=== PATIENT | female | born 1935 | race Two or more races ===

== ENCOUNTER 2024-09-10 17:15 | Inpatient (IN) | payer MEDICARE, MEDICAID, SELFPAY ==
[2024-09-10] VITALS (8 sets, daily range): BP systolic 143–157; BP diastolic 57–92; PULSE 84–96; RESP 18–28; TEMP 36.7–39.2; O2SAT 96–100
--- NOTE | 2024-09-10 17:36 | XR_ITS ---
Examination: AP chest single view Technique one AP portable upright chest single view Exam date and time: September 09, 2024 1740 hrs. Comparison September 28, 2017 Indications: Onset chest pain today. Findings: Early CHF Mild enlargement cardiac contour Prominent vascular congestion with early perihilar edema Prominent osteopenia Impression: Early CHF
--- NOTE | 2024-09-10 17:36 | EKG_ITS ---
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
--- NOTE | 2024-09-10 17:41 | EDRME_ITS ---
Rapid Medical Screening Exam RME Arrival date/time: 09/10/24 17:15 Time Seen by Provider: 09/10/24 17:36 Vital signs: Vital Signs Temperature 101.2 F H 09/10/24 17:25 Pulse Rate 95 09/10/24 17:25 Respiratory Rate 18 09/10/24 17:25 Blood Pressure 157/76 H 09/10/24 17:25 Pulse Oximetry (%) 97 09/10/24 17:25 Oxygen Delivery Method Nasal Cannula 09/10/24 17:25 Oxygen Flow Rate 6 09/10/24 17:25 RME Narrative: 88 yo female patient sent over from [facility] for vomiting and wheezing
[2024-09-10 18:14] LABS: Basophils % (Auto) 0 % (0-2.5); Eosinophils % (Auto) 0 % (0-10); Hematocrit 37.1 % (36.0-46.0); Hemoglobin 12.3 g/dL (12.0-16.0); Immature Granulocytes % (Auto) 1 % (0-0); Immature Granulocytes Auto 0.15 Thou/mm3 (0.00-0.00); Lymphocytes # (Auto) 0.3 Thou/mm3 (1.0-4.8); Lymphocytes % (Auto) 2 % (10-50); Mean Corpuscular HGB Conc 33.2 g/dl (31.0-37.0); Mean Corpuscular Hemoglobin 29.6 pg (25.0-35.0); Mean Corpuscular Volume 89 fL (80-100); Monocytes # (Auto) 1.2 Thou/mm3 (0.0-0.8); Monocytes % (Auto) 5 % (0-12); Neutrophils # (Auto) 20.6 Thou/mm3 (1.8-7.7); Neutrophils % (Auto) 92 % (37-80); Nucleated Red Blood Cell % 0 /100 WBC (0); Platelet Count 337 Thou/mm3 (140-440); RDW Standard Deviation 41.6 fL (36.4-46.3); Red Blood Count 4.15 Miln/mm3 (4.00-5.20)
--- NOTE | 2024-09-10 18:15 | EDNOTE_ITS ---
Nausea/Vomit./Diarrhea-RME/HPI General Chief complaint: Nausea/Vomiting/Diarrhea Stated complaint: SOB, WHEEZING Time Seen by Provider: 09/10/24 17:36 Arrival date/time: 09/10/24 17:15 RME / HPI RME / HPI Narrative: 88 yo female patient sent over from [facility] for vomiting and wheezing ------ This section includes all my notes and documentations, including HPI, PE, and ED course. Keith Villagran MD HPI: 88yo female with a history of CAD, HTN, HLD, DM, CVA w/ residual deficits BIBA from [facility] presents to the ED for complaints of wheezing and N/V x today. Per nursing staff here, EMS reported the patient was found by facility staff to be wheezing. Patient is febrile here in the ED. Patient does not answer our questions here in the ED. No other complaints reported. ROS: All negative except as documented in HPI. Physical Exam: General: Awake. In mild respiratory distress. Eyes: Conjunctivae and lids clear. ENT: No nasal congestion. Neck: Supple. Heart: RRR. Lungs: In mild respiratory distress. Decreased air movement. Diffuse rales. Abdomen: Soft and nontender. Legs: No clubbing, cyanosis, edema. Skin: Warm and dry. Neuro: Awake. I reviewed all diagnostic test results. My interpretation of the EKG is sinus rhythm with no acute ST?T changes. My interpretation of the chest x-ray is increased vascular congestion. Blood tests and urine tests remarkable for WBC 22.3, lactic acid 3.0, Mg 1.1, and UTI. At this point, diagnoses include sepsis and UTI and respiratory failure and hypomagnesemia. Treatment here included IV fluid and Solu-Medrol and DuoNeb and Rocephin and Toradol and Tylenol. No significant improvement noted. I discussed the case with our hospitalist. About the presentation and exam and diagnostics and treatments here. And need of further care in the hospital. Will accept the patient. Keith Villagran MD Related Data Home Medications ?Medication ?Instructions ?Recorded ?Confirmed docusate sodium 100 mg capsule 100 mg PO BID 10/26/17 10/27/17 (Doc-Q-Lace) nebivolol 5 mg tablet (Bystolic) 5 mg PO QDAY 10/26/17 10/27/17 nitroglycerin 0.4 mg sublingual 0.4 mg buccal PRN PRN Chest Pain 10/26/17 10/27/17 tablet (Nitrostat) pravastatin 20 mg tablet 20 mg PO HS 10/26/17 8 hbwnhpvxdezp-aorzuhvucocjl-sfxbqyv 5 ml PO PRN PRN Cou gh 10/26/17 10/27/17 6.25 mg-5 mg-10 mg/5 mL oral syrup (Promethazine VC-Codeine) Allergies Allergy/AdvReac Type Severity Reaction Status Date / Time Penicillins Allergy Unknown Verified 10/27/17 07:23 Review of Systems Review of Systems Systems Reviewed: All systems reviewed, normal except as documented Past Medical History Past Medical History NEUROLOGIC: Negative Neurological Disorders CARDIAC: Positive Cardiac Disorders, Myocardial Infarction (pt states she thinks so but unsure), Angina, Coronary Artery Disease, Hypercholesterolemia and Hypertension; Negative Congestive Heart Failure RESPIRATORY: Positive Pneumonia (as a child); Negative Chronic Obstructive Pulmonary Disease (COPD) GASTROINTESTINAL: Positive Gall Bladder Disease GENITOURINARY: Positive Genitourinary Disorders and Kidney Stones; Negative Renal Disease REPRODUCTIVE: Positive Breast Cancer (right 1985); Negative Previous Pregnancies MUSCULOSKELETAL: Positive Musculoskeletal Disorders and Arthritis ENDOCRINE: Positive Diabetes Mellitus Type 2 (since 2017); Negative Diabetes Mellitus Type 1 HEMATOLOGIC: Negative Blood Disorders OTHER HISTORY: Positive Chemotherapy, Chicken Pox, Measles, Mumps and Breast Cancer (right 1985); Negative Autoimmune Disease Family History FAMILY HISTORY: Positive Family Respiratory Disorders (sister home o2), Family Cardiac Disorders (sister pacemaker, brother ruptured aneurysm), Family Gastrointestinal Problems (sister stomach ca) and Family Cancer (sister stomach ca); Negative Family Psychiatric Problems, Family Surgery or Family Anesthesia Reaction Surgical History SURGICAL: Positive Coronary Stent (x1 unknown details), Cardiac Catheterization, Angiogram, Eye Surgery (bilat unknown details), Nose Surgery (nose to forehead surgery pt states air would escape nose into heah) and Mastectomy (right complete 1985) Social History SMOKING STATUS: Never smoker ED Exam Narrative Physical exam: As noted in HPI. Course Course Course Narrative: CXR is ordered for determining the etiology of fever. 1810: Sepsis alert initiated. Orders made at this time are congruent with ED Adult Sepsis Order List. Re-evaluation is to be completed. 1924: NS IVF started. Quality Measures none Orders Category Date Time Status Bedside COVID-19 Antigen Test NOW Care 09/10/24 17:36 Active Bedside Influenza A&B Antigen Test NOW Care 09/10/24 17:36 Completed COVID-19 Screening Questionnaire NOW Care 09/10/24 21:00 Active Web Administrator NOW Care 09/10/24 17:36 Active Decision to Admit X1 Care 09/10/24 21:00 Active EKG (ED ONLY) *Do not use* NOW Care 09/10/24 17:36 Completed Saline [Insert IV] NOW Care 09/10/24 18:23 Active Straight [In and Out Catheter] X1 Care 09/10/24 18:23 Active EKG (ED Only) Stat Exams 09/10/24 17:36 Draft XR chest 1V portable Stat Exams 09/10/24 17:36 Completed B-Type Natriuretic Peptide Stat Lab 09/10/24 17:48 Completed Blood Culture (Lab) Stat Lab 09/10/24 17:48 Received CBC Stat Lab 09/10/24 17:48 Completed Comprehensive Metabolic Panel Stat Lab 09/10/24 17:48 Completed Lactate (Lactic Acid) Stat Lab 09/10/24 17:48 Results Lipase Stat Lab 09/10/24 17:48 Completed Magnesium Stat Lab 09/10/24 17:48 Completed Partial Thromboplastin Time Stat Lab 09/10/24 17:48 Completed Procalcitonin Stat Lab 09/10/24 17:48 Completed Prothrombin Time with INR Stat Lab 09/10/24 17:48 Completed RSV [Respiratory Syncytial Virus Ag] Stat Lab 09/10/24 18:25 Ordered Troponin I Stat Lab 09/10/24 17:48 Completed Urinalysis Stat Lab 09/10/24 20:23 Completed Urine Culture Stat Lab 09/10/24 20:23 Received Acetaminophen Ivpb [Ofirmev Inj] Med 09/10/24 18:23 Discontinued 1,000 mg in 100 ml IV NOW Albuterol/Ipratr Rt Candida [Duoneb Rt Candida] Med 09/10/24 18:23 Discontinued 3 ml INH X1 ONE Ketorolac Inj [Toradol Inj] Med 09/10/24 18:23 Discontinued 7.5 mg IVP X1 ONE Magnesium Sulfate 2 GM Ivpb [Magnesium Sulfate Ivpb] Med 09/10/24 19:40 Active 2 gm in 50 ml IV X1 Magnesium Sulfate 2 GM Ivpb [Magnesium Sulfate Ivpb] Med 09/10/24 19:40 Active 2 gm in 50 ml IV X1 MethylPREDNISolone.* [SoluMEDROL Inj] Med 09/10/24 18:23 Discontinued 125 mg IVP X1 ONE Sodium Chloride 0.9% 1000 ml [Ns] 1,000 ml Med 09/10/24 18:23 Discontinued IV 999 mls/hr cefTRIAXone [Rocephin] 1,000 mg Med 09/10/24 18:23 Discontinued Sodium Chloride 0.9% (P) [Ns 0.9% (P)] 50 ml IV X1 Vital Signs Vital signs: Vital Signs Temperature 101.2 F H 09/10/24 17:25 Pulse Rate 95 09/10/24 17:25 Respiratory Rate 18 09/10/24 17:25 Blood Pressure 157/76 H 09/10/24 17:25 Pulse Oximetry (%) 97 09/10/24 17:25 Oxygen Delivery Method Nasal Cannula 09/10/24 17: Oxygen Flow Rate 6 09/10/24 17:25 Nausea/Vomiting/Diarrhea MDM Narrative MDM Narrative:: Scribe Attestation: 09/10/24 Silvana Starr am scribing for and in the presence of Dr. Villagran. Patient data External records reviewed:: [facility] previous records (Per chart review, patient has no previous ED visits or admissions to this facility.) Clinical information provided by:: EMS Social determinants that could affect healthcare access:: housing (SNF resident) Patient has the following chronic illnesses:: CAD, HTN, HLD, DM, CVA w/ residual deficits How is presenting disease/condition affected by chronic disease/condition?: exacerbated by Evaluation data The following diagnostics were reviewed and interpreted by me:: lab results, radiology exam(s) and EKG tracing(s) (My interpretation of the EKG is: Sinus rhythm (87 bpm) with PACs and nonspecific ST-T changes. Keith iVllagran MD) Lab and/or radiology exams considered but not ordered:: none Interpretation Summary: Sepsis and UTI and respiratory failure and hypomagnesemia Medications / Prescriptions Medications / Prescriptions considered but not ordered:: none Medication administrations:: Medication Administration History Magnesium Sulfate (Magnesium Sulfate Ivpb) 2 gm in 50 mls @ 25 mls/hr IV X1 ONE Stop: 09/10/24 21:39 Last Admin: 09/10/24 20:00 Dose: 25 mls/hr Documented By: ISABELA Magnesium Sulfate (Magnesium Sulfate Ivpb) 2 gm in 50 mls @ 25 mls/hr IV X1 ONE Stop: 09/10/24 21:39 Last Admin: 09/10/24 20:01 Dose: 25 mls/hr Documented By: ISABELA Discontinued Medications Albuterol/Ipratropium (Albuterol/Ipratropium (Duoneb) Rt Candida 3 Ml Nebu) 3 ml INH X1 ONE Stop: 09/10/24 18:24 Last Admin: 09/10/24 19:43 Dose: 3 ml Documented By: DEBBY Acetaminophen (Ofirmev Inj) 1,000 mg in 100 mls @ 250 mls/hr IV NOW ONE Stop: 09/10/24 18:46 Last Admin: 09/10/24 19:29 Dose: 250 mls/hr Documented By: ISABELA Ceftriaxone Sodium 1,000 mg/ (Sodium Chloride) 50 mls @ 100 mls/hr IV X1 ONE Stop: 09/10/24 18:52 Last Admin: 09/10/24 19:31 Dose: 100 mls/hr Documented By: ISABELA Sodium Chloride (Ns) 1,000 mls @ 999 mls/hr IV .Q1H1M ONE Stop: 09/10/24 19:23 Last Admin: 09/10/24 19:25 Dose: 999 mls/hr Documented By: ISABELA Ketorolac Tromethamine (Ketorolac Inj 30 Mg/Ml Vial) 7.5 mg IVP X1 ONE Stop: 09/10/24 18:24 Last Admin: 09/10/24 19:27 Dose: 7.5 mg Documented By: ISABELA Methylprednisolone Sodium Succinate (Methylprednisolone Sod Succ 62.5 Mg/Ml 2ml Vial) 125 mg IVP X1 ONE Stop: 09/10/24 18:24 Last Admin: 09/10/24 19:26 Dose: 125 mg Documented By: ISABELA Solumedrol, Toradol, NS, Rocephin, Tylenol, Duobeb, Magnesium Sulfate Consultations Consultation(s) initiated? (list below): No Diagnosis Nausea Differential Diagnosis: dehydration and other (Pneumonia, LA, sepsis, electrolyte abnormalities) Most likely diagnosis given after review of the tests above:: Sepsis and UTI and respiratory failure and hypomagnesemia Admission Indicated Admission indicated?: indicated Explain why admission is indicated or not indicated:: Sepsis and UTI and respiratory failure and hypomagnesemia Admission Request Was there a request for admission?: Yes Admission Attestation Admission request attestation: Discussed case with Hospitalist service regarding admission. Discussed patients ED course, exam findings, labs, and radiology results. The Hospitalist [agrees] to accept the patient for admission. Disposition Plan Disposition Plan: Admit Discharge Plan Plan Patient Disposition: Admit Acute Care w/in Hospital Prescriptions/Referrals Prescriptions/Med Rec: No Action [id number] [Promethazine VC-Codeine] 6.25-5-10 mg/5 mL Syrup 5 ml PO PRN PRN (Reason: Cough) nitroglycerin [Nitrostat] 0.4 mg Tablet, Sublingual 0.4 mg buccal PRN PRN (Reason: Chest Pain) docusate sodium [Doc-Q-Lace] 100 mg Capsule 100 mg PO BID pravastatin 20 mg Tablet 20 mg PO HS nebivolol [Bystolic] 5 mg Tablet 5 mg PO QDAY Referrals: Minesh Correia MD [Primary Care Provider] - In 1 week Problem List Clinical Impression: Sepsis, UTI (urinary tract infection), Respiratory failure with hypoxia, Hypomagnesemia Patient/Caregiver Discharge Instructions Print Language: Yemeni Stand Alone Forms: [facility] Award Info., Patient Portal Info Letter
--- NOTE | 2024-09-10 18:15 | PD.EDSOB ---
ED SOB =RME/HPI General Chief Complaint: Nausea/Vomiting/Diarrhea Stated Complaint: SOB, WHEEZING Time Seen by Provider: 09/10/24 17:36 Arrival date/time: 09/10/24 17:15 RME / HPI RME / HPI Narrative: 88 yo female patient sent over from [facility] for vomiting and wheezing Related Data Home Medications ?Medication ?Instructions ?Recorded ?Confirmed docusate sodium 100 mg capsule 100 mg PO BID 10/26/17 10/27/17 (Doc-Q-Lace) nebivolol 5 mg tablet (Bystolic) 5 mg PO QDAY 10/26/17 10/27/17 nitroglycerin 0.4 mg sublingual 0.4 mg buccal PRN PRN Chest Pain 10/26/17 10/27/17 tablet (Nitrostat) pravastatin 20 mg tablet 20 mg PO HS 10/26/17 10/27/17 ibphafebtfzu-coryskmwyqyno-gleudgn 5 ml PO PRN PRN Cough 10/26/17 10/27/17 6.25 mg-5 mg-10 mg/5 mL oral syrup (Promethazine VC-Codeine) Allergies Allergy/AdvReac Type Severity Reaction Status Date / Time Penicillins Allergy Unknown Verified 10/27/17 07:23 Course Orders Category Date Time Status Bedside COVID-19 Antigen Test NOW Care 09/10/24 17:36 Active Bedside Influenza A&B Antigen Test NOW Care 09/10/24 17:36 Active Solid Waste Disposal Manager NOW Care 09/10/24 17:36 Active EKG (ED ONLY) *Do not use* NOW Care 09/10/24 17:36 Active EKG (ED Only) Stat Exams 09/10/24 17:36 Ordered XR chest 1V portable Stat Exams 09/10/24 17:36 Taken B-Type Natriuretic Peptide Stat Lab 09/10/24 17:48 Received Blood Culture (Lab) Stat Lab 09/10/24 17:48 Received CBC Stat Lab 09/10/24 17:48 Received Comprehensive Metabolic Panel Stat Lab 09/10/24 17:48 Received Lactate (Lactic Acid) Stat Lab 09/10/24 17:48 Results Lipase Stat Lab 09/10/24 17:48 Received Magnesium Stat Lab 09/10/24 17:48 Received Partial Thromboplastin Time Stat Lab 09/10/24 17:48 Received Procalcitonin Stat Lab 09/10/24 17:48 Received Prothrombin Time with INR Stat Lab 09/10/24 17:48 Received Troponin I Stat Lab 09/10/24 17:48 Received Urinalysis Stat Lab 09/10/24 17:36 Ordered Urine Culture Stat Lab 09/10/24 17:36 Ordered Vital Signs Vital signs: Vital Signs Temperature 101.2 F H 09/10/24 17:25 Pulse Rate 95 09/10/24 17:25 Respiratory Rate 18 09/10/24 17:25 Blood Pressure 157/76 H 09/10/24 17:25 Pulse Oximetry (%) 97 09/10/24 17:25 Oxygen Delivery Method Nasal Cannula 09/10/24 17:25 Oxygen Flow Rate 6 09/10/24 17:25 Discharge Plan Prescriptions/Referrals Prescriptions/Med Rec: No Action [id number] [Promethazine VC-Codeine] 6.25-5-10 mg/5 mL Syrup 5 ml PO PRN PRN (Reason: Cough) nitroglycerin [Nitrostat] 0.4 mg Tablet, Sublingual 0.4 mg buccal PRN PRN (Reason: Chest Pain) docusate sodium [Doc-Q-Lace] 100 mg Capsule 100 mg PO BID pravastatin 20 mg Tablet 20 mg PO HS nebivolol [Bystolic] 5 mg Tablet 5 mg PO QDAY Referrals: Minesh Correia MD [Primary Care Provider] - In 1 week Patient/Caregiver Discharge Instructions Print Language: Argentine
[2024-09-10 18:21] LABS: White Blood Count 22.3 Thou/mm3 (3.6-11.0)
[2024-09-10 18:30] LABS: INR 1.1 (0.9-1.3); Partial Thromboplastin Time 25.2 Seconds (22.0-36.0); Prothrombin Time 11.9 Seconds (9.0-12.2)
[2024-09-10 18:33] LABS: B-Type Natriuretic Peptide 176 pg/mL (0-100)
[2024-09-10 18:41] LABS: Alanine Aminotransferase 44 U/L (10-49); Albumin, Serum 3.9 gm/dL (3.4-4.8); Albumin/Globulin Ratio 1.3 (1.2-2.2); Alkaline Phosphatase 57 U/L (46-116); Anion Gap 8 (7-16); Aspartate Amino Transferase 61 U/L (0-34); BUN/Creatinine Ratio 16 Ratio (12-20); Bilirubin,Total 0.5 mg/dL (0.3-1.2); Blood Urea Nitrogen 14 mg/dL (9-23); Calcium 9.6 mg/dL (8.3-10.6); Calcium (Corrected) 9.7 mg/dL (8.5-10.1); Carbon Dioxide 23.7 mMol/L (20.0-31.0); Chloride 108 mMol/L (98-107); Creatinine (Component) 0.9 mg/dL (0.6-1.3); Globulin 3.1 gm/dL (2.3-3.5); Glucose 197 mg/dL (74-106); Lipase 26 U/L (12-53); Magnesium 1.1 mg/dL (1.6-2.6); Osmolality,Calculated 284 (275-295); Potassium 3.8 mMol/L (3.4-5.1); Procalcitonin 0.53 ng/ml (0.0-0.49); Sodium 140 mMol/L (136-145); Troponin I < 0.020 ng/mL (0.0-0.045); eGFR > 60 See Note
[2024-09-10] MEDS: SODIUM CHLORIDE 0.9% 1000 ML 1,000 ML 999 ML IV (19:25)
[2024-09-10] MEDS: MethylPREDNISolone SOD SUCC 62.5 MG/ML 2ML VIAL 125 MG IVP (19:26)
[2024-09-10] MEDS: KETOROLAC INJ 30 MG/ML VIAL 7.5 MG IVP (19:27)
[2024-09-10] MEDS: ACETAMINOPHEN IVPB 1,000 MG/100 ML VIAL 250 MG IV (19:29)
[2024-09-10] MEDS: cefTRIAXone 1,000 MG in SODIUM CHLORIDE 0.9% (P) 50 ML 100 MG IV (19:31)
[2024-09-10] MEDS: ALBUTEROL/IPRATROPIUM (Duoneb) RT SOL 3 ML NEBU INH ×2 (19:43→22:20)
[2024-09-10] MEDS: Magnesium Sulfate 2 GM Ivpb 2 GM/50 ML BAG IV ×2 (20:00→20:01)
[2024-09-10 20:36] LABS: Collection Type, Urine Clean Catch
[2024-09-10 20:49] LABS: Bacteria,Urine 3+; Bilirubin,Urine Negative (Negative); Blood,Urine Trace (Negative); Clarity,Urine Turbid (Clear/Hazy); Color,Urine Yellow (Lt Yel-Yel); Glucose, Urine Negative (Negative); Hyaline Casts,Urine < 1 /hpf (0-1); Ketones,Urine Negative (Negative); Leukocyte Esterase,Urine Positive (Negative); Nitrite,Urine Negative (Negative); PH,Urine 5.5 (5.0-7.0); Protein,Urine Trace (Neg - Trace); RBC,Urine 1 /hpf (0-3); Specific Gravity,Urine 1.016 (1.001-1.035); Squamous Epithelial Cell,Urine 2 /hpf (0-5); Urobilinogen,Urine Negative mg/dL (0.0-1.0); WBC,Urine 4 /hpf (0-5)
[2024-09-10 21:05] LABS: Reflex Lactate? Y
[2024-09-10 21:23] LABS: Lactic Acid, 3 HR 1.7 mMol/L (0.4-2.0)
--- NOTE | 2024-09-10 21:48 | PD.RESHP ---
Documentation for date of: 09/10/24 [facility] History of Present Illness History of present illness: This is an 88-year-old female with PMHx of dementia, CVA, DVT on ELIQUIS, asthma, HTN, HLD, hypothyroidism, T2DM, oropharyngeal dysphagia. [facility] with a chief complaint of 1 day of wheezing and nausea/vomiting. History is limited secondary to dementia. Per SNF, she has baseline dementia, chronically bedridden. She has been getting her asthma medications as prescribed however today she was found to have increased wheezing as well as nausea and vomiting stomach content. She does not use oxygen. No reported worsening dementia, new onset altered mental status, fever, chills, night sweats, chest pain, shortness of breath, abdominal pain, N/V/D/C, dysuria or urinary frequency or urgency. ED COURSE: T101.2, HR 95, RR 21, BP 157/76, satting 97% on 2L NC. WBC 22.3, CBC otherwise WNL. Normal coag studies. Chemistry significant for lactic acid 3.0 > 1.7, magnesium 1.1, AST 61, BNP 176, PRO-LEIGHTON 0.53, GLUCOSE 197. UA turbid with 3+ bacteria and positive leukocyte esterase. EKG sinus rhythm without acute ST changes. CXR showed CHF pattern, no pneumonia. Negative COVID, influenza A, influenza B. PMHx: Dementia, CVA, metabolic encephalopathy, DVT, asthma, HTN, HLD, hypothyroidism, T2DM, oropharyngeal dysphagia PSHx: Unable to obtain. MEDS: Multiple meds, most importantly: DONEPEZIL 5 mg HS, ASPIRIN 81 mg, ATORVASTATIN 40 mg, FENOFIBRATE 48 mg daily, NEBIVOLOL 10 mg daily, LISINOPRIL 10 mg, ELIQUIS 5 mg BID, LEVOTHYROXINE 50 mcg, INSULIN GLARGINE 15 units, NOVOLOG, JANUVIA 50 mg daily, METFORMIN 1000 mg BID, NITROGLYCERIN 0.4 mg PRN, NORCO 7.5-325 milligram Q8H for pain, , BACLOFEN 5 mg daily for back pain, LATANOPROST eyedrops bilaterally daily, PROMETHAZINE for cough, GUAIFENESIN, DuoNebs q.4h. ALLERGIES: PENICILLIN FHx: Unable to obtain. SH: Unable to obtain. Exam Vital Signs Temp Pulse Resp BP Pulse Ox O2 Del Method O2 Flow Rate 98.1 F 96 21 H 156/92 H 97 Room Air 2 09/10/24 20:29 09/10/24 20:29 09/10/24 20:29 09/10/24 20:29 09/10/24 20:29 09/10/24 20:29 09/10/24 19:44 Narrative Exam GENERAL Elderly female, no apparent distress. HEENT NCAT.?[place]. Oral mucosa is moist. Patent Nares NECK Supple, nontender, no thyromegaly, no meningismus, no JVD, no step offs CHEST RRR, no m/g/r Coarse breath sounds bilaterally, mild wheezing throughout. Symmetrical chest rise. No intercostal subcostal retraction Atraumatic, nontender, no crepitus, symmetrical expansion. ABDOMEN Soft, flat, nontender. No guarding/rebound tenderness/masses. Bowel sounds presents EXTREMITIES Nontender, no cyanosis, no edema No edema/cyanosis.? SKIN Warm and dry, no jaundice/rashes. NEUROMUSCULAR No lumbar or midline, no CVA, no paraspinal muscle spasm or tenderness. Moves all 4 extremities well, with full ROM and good CSM. No focal neurologic deficits. PSYCHIATRY Normal mood and affect, cooperative, no SI or HI or hallucinations. Results: Labs 09/10/24 17:48 09/10/24 17:48 Labs: Short CBC 09/10/24 Range/Units 17:48 WBC 22.3 H (3.6-11.0) Thou/mm3 Hgb 12.3 (12.0-16.0) g/dL Hct 37.1 (36.0-46.0) % Plt Count 337 (140-440) Thou/mm3 BMP 09/10/24 17:48 Sodium 140 Potassium 3.8 Chloride 108 H Carbon Dioxide 23.7 BUN 14 Creatinine 0.9 Glucose 197 H Calcium 9.6 Cardiac Enzymes 09/10/24 Range/Units 17:48 Troponin I < 0.020 (0.0-0.045) ng/mL Liver Function 09/10/24 Range/Units 17:48 Total Bilirubin 0.5 (0.3-1.2) mg/dL AST 61 H (0-34) U/L ALT 44 (10-49) U/L Alkaline Phosphatase 57 (46-116) U/L Albumin 3.9 (3.4-4.8) gm/dL Urine 09/10/24 Range/Units 20:23 Urine Color Yellow (Lt Yel-Yel) Urine Clarity Turbid A (Clear/Hazy) Urine pH 5.5 (5.0-7.0) Ur Specific [place] 1.016 (1.001-1.035) Urine Protein Trace (Neg - Trace) Urine Glucose (UA) Negative (Negative) Quality Measures Quality Measures none Advance care planning discussed with:: patient Medications Home Medications and Allergies Home Medications ?Medication ?Instructions ?Recorded ?Confirmed ?Type docusate sodium 100 mg capsule 100 mg PO BID 10/26/17 10/27/17 History (Doc-Q-Lace) nebivolol 5 mg tablet (Bystolic) 5 mg PO QDAY 10/26/17 10/27/17 History nitroglycerin 0.4 mg sublingual 0.4 mg buccal PRN PRN Chest Pain 10/26/17 10/27/17 History tablet (Nitrostat) pravastatin 20 mg tablet 20 mg PO HS 10/26/17 10/27/17 History knbrelkdjohi-bogexzpsfvgfr-mqbzqav 5 ml PO PRN PRN Cough 10/26/17 10/27/17 History 6.25 mg-5 mg-10 mg/5 mL oral syrup (Promethazine VC-Codeine) Allergies Allergy/AdvReac Type Severity Reaction Status Date / Time Penicillins Allergy Unknown Verified 10/27/17 07:23 Visit Medications Acetaminophen (Acetaminophen 325 Mg Tablet) 650 mg PO Q6H PRN PRN Reason: PAIN SCALE 1-3 (mild Stop: 10/10/24 21:28 Acetaminophen (Acetaminophen 325 Mg Tablet) 650 mg PO Q6H PRN PRN Reason: Fever >100 Stop: 10/10/24 21:28 Albuterol/Ipratropium (Albuterol/Ipratropium (Duoneb) Rt Candida 3 Ml Nebu) 3 ml INH Q6HRRT [facility] Stop: 10/11/24 00:59 Ceftriaxone Sodium/Dextrose (Rocephin/D5w 1gm Iv Premix) 50 mls @ 100 mls/hr IV DAILY@2100 [facility] Stop: 09/18/24 20:59 Doxycycline Hyclate 100 mg/ (Sodium Chloride) 100 mls @ 100 mls/hr IV BID [facility] Stop: 09/17/24 21:34 Ondansetron HCl (Ondansetron Inj 2 Mg/Ml Inj 2 Ml) 4 mg IV Q6H PRN; Protocol PRN Reason: NAUSEA OR VOMITING Stop: 10/10/24 21:28 Pantoprazole Sodium (Pantoprazole Inj 40 Mg Vial) 40 mg IVP QDAY ROXANA Stop: 10/11/24 08:59 Discontinued Medications Albuterol/Ipratropium (Albuterol/Ipratropium (Duoneb) Rt Candida 3 Ml Nebu) 3 ml INH X1 ONE Stop: 09/10/24 18:24 Last Admin: 09/10/24 19:43 Dose: 3 ml Acetaminophen (Ofirmev Inj) 1,000 mg in 100 mls @ 250 mls/hr IV NOW ONE Stop: 09/10/24 18:46 Last Infusion: 09/10/24 20:25 Dose: Infused Ceftriaxone Sodium 1,000 mg/ (Sodium Chloride) 50 mls @ 100 mls/hr IV X1 ONE Stop: 09/10/24 18:52 Last Infusion: 09/10/24 21:27 Dose: Infused Sodium Chloride (Ns) 1,000 mls @ 999 mls/hr IV .Q1H1M ONE Stop: 09/10/24 19:23 Last Infusion: 09/10/24 21:27 Dose: Infused Magnesium Sulfate (Magnesium Sulfate Ivpb) 2 gm in 50 mls @ 25 mls/hr IV X1 ONE Stop: 09/10/24 21:39 Last Admin: 09/10/24 20:00 Dose: 25 mls/hr Magnesium Sulfate (Magnesium Sulfate Ivpb) 2 gm in 50 mls @ 25 mls/hr IV X1 ONE Stop: 09/10/24 21:39 Last Admin: 09/10/24 20:01 Dose: 25 mls/hr Ketorolac Tromethamine (Ketorolac Inj 30 Mg/Ml Vial) 7.5 mg IVP X1 ONE Stop: 09/10/24 18:24 Last Admin: 09/10/24 19:27 Dose: 7.5 mg Methylprednisolone Sodium Succinate (Methylprednisolone Sod Succ 62.5 Mg/Ml 2ml Vial) 125 mg IVP X1 ONE Stop: 09/10/24 18:24 Last Admin: 09/10/24 19:26 Dose: 125 mg Sodium Chloride (Sodium Chloride Rt 10% 15 Ml Nebu) 5 ml INH X1 ONE Stop: 09/10/24 21:34 Assessment & Plan Plan In summary: 88-year-old female with PMHx of dementia, CVA, DVT on ELIQUIS, asthma, HTN, HLD, hypothyroidism, T2DM, oropharyngeal dysphagia. Admitted for sepsis likely from PNA vs. UTI. AHRF Sepsis 2/2 PNA vs UTI Asthma with ?exacerbation Presenting from SNF with wheezing. Met 4/4 SIRS with fever, tachycardia, tachypnea, leukocytosis, with EOD i.e. lactic acidosis. UA positive for 3+ bacteria and LE. Unable to assess for symptoms given dementia, CXR no PNA. However has cough, coarse breath sounds and wheezing on exam, hx of dysphagia, concerning for early aspiration PNA. Negative COVID, influenza A/B. Given 1 L NS bolus in ED. ? Continue FLAGYL and DOXYCYCLINE for PNA (09/10 to present) *PEN allergy ? Continue CEFTRIAXONE (09/10 to present) ? Continue DuoNebs q.4h. ? Continue GUAIFENESIN 100 mg QID PRN for cough. ? Pending pancultures, MRSA, RSV ? De-escalate ANTIBIOTICS as indicated ? Will give another 500 cc gently. Electrolyte abnormalities 09/10, magnesium 1.1, repleted. ? Replete as needed Elevated BNP Mild transaminitis BNP 176, CXR suggested CHF, no history of CHF, no signs of volume overload, no recent echo. AST 61, likely in setting of dehydration. ? Gentle fluids DVT on Eliquis History of DVT 6 months ago. Location unclear, no obvious exam findings of DVT. Per SNF, primary doctor wanted to continue ELIQUIS. ? Continue home ELIQUIS 5 mg BID. HTN, HLD hypothyroidism BP 156/92, HR 96. Will hold BETA-BLOCKERS for risk of masking tachycardia in setting of sepsis. ? Resume home NEBIVOLOL 10 mg HS when able to ? Continue home LISINOPRIL 10 mg ? Continue home ATORVASTATIN 40 mg ? Continue home FENOFIBRATE 48 mg daily ? Continue home LEVOTHYROXINE 50 mcg T2DM GLUCOSE 197 on admission. ? INSULIN sliding scale ? Accu-Cheks ? Consider A1c Hx of CVA ? Continue home ASPIRIN 81 mg daily [place] Oropharyngeal dysphagia Appears at baseline. Will need dysphagia diet after formal speech evaluation. ? Bedside swallow eval Glaucoma ? Continue home LATANOPROST eyedrops bilaterally daily ? Continue home BRIMONIDINE 0.1% solution bilaterally TID Chronic musculoskeletal pain ? Continue BACLOFEN 5 mg daily PRN ? Continue NORCO 7.5-325 milligram Q8H for pain Chest pain, nonspecific Likely chronic anginal chest pain. Currently asymptomatic. Troponin normal. EKG sinus without acute ST changes. ? Continue home NITROGLYCERIN 0.4 mg PRN Health maintenance Diet: NPO, will need dysphagia diet [id number] GI prophylaxis: PROTONIX DVT prophylaxis: ELIQUIS Antibiotics: ZOSYN, DOXYCYCLINE CODE STATUS: Full code Disposition: Admitted for sepsis. Patient case was discussed with attending, Blair Cordero MD. 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 Patient also has wheezing. She has known asthma. The patient was given bronchodilators. She was started on IV antibiotic treatment empirically. MRSA screen requested. Her prolactin level is elevated. She has a white count of 22,000. Chest x-ray revealed no dense infiltrate. She has increased bronchovascular markings possible CHF. She was given IV Zosyn and doxycycline. Follow culture results. Monitor respiratory status. ABG BiPAP as indicated.
[2024-09-10] MEDS: SODIUM CHLORIDE RT 10% 15 ML NEBU 5 ML INH (22:20)
--- NOTE | 2024-09-10 23:16 | PC.RT ---
Sputum Induction completed. Sputum culture collected and sent to lab for analysis.
[2024-09-10] MEDS: SODIUM CHLORIDE 0.9% 500 ML 500 ML 125 ML IV (23:33)
[2024-09-10] MEDS: APIXABAN 2.5 MG TABLET 5 MG PO (23:38)
[2024-09-10] MEDS: BRIMONIDINE OP SOL 0.1% 5 ML BTL 1 DROP BOTH EYES (23:38)
[2024-09-10] MEDS: DOXYCYCLINE INJ 100 MG in SODIUM CHLORIDE 0.9% (P) 100 ML IV (23:39)
[2024-09-11] VITALS (17 sets, daily range): BP systolic 124–148; BP diastolic 61–74; PULSE 75–108; RESP 16–95; TEMP 36–36.6; O2SAT 93–100; BMI 21.6
[2024-09-11] MEDS: ALBUTEROL/IPRATROPIUM (Duoneb) RT SOL 3 ML NEBU INH ×6 (02:48→23:23)
[2024-09-11 03:19] LABS: Respiratory Syncytial Virus Ag Negative (Negative)
--- NOTE | 2024-09-11 03:39 | PC.NURSE ---
Patient has penicillin allergy and has zosyn ordered at 0600. Clarified with MD Sandoval and he said he will change the order
[2024-09-11] MEDS: metroNIDAZOLE/NS 500 MG IVPB 500 MG/100 ML BAG 200 MG IV (04:22)
--- NOTE | 2024-09-11 04:41 | PC.NURSE ---
MD Valdez said NPO with meds is ok
[2024-09-11] MEDS: LEVOTHYROXINE SODIUM 25 MCG TABLET 50 MCG PO (05:41)
[2024-09-11 06:15] LABS: Basophils % (Auto) 0 % (0-2.5); Eosinophils % (Auto) 0 % (0-10); Hematocrit 33.8 % (36.0-46.0); Hemoglobin 10.9 g/dL (12.0-16.0); Immature Granulocytes % (Auto) 0 % (0-0); Immature Granulocytes Auto 0.07 Thou/mm3 (0.00-0.00); Lymphocytes # (Auto) 0.6 Thou/mm3 (1.0-4.8); Lymphocytes % (Auto) 3 % (10-50); Mean Corpuscular HGB Conc 32.2 g/dl (31.0-37.0); Mean Corpuscular Hemoglobin 29.5 pg (25.0-35.0); Mean Corpuscular Volume 92 fL (80-100); Monocytes # (Auto) 0.3 Thou/mm3 (0.0-0.8); Monocytes % (Auto) 2 % (0-12); Neutrophils # (Auto) 18.5 Thou/mm3 (1.8-7.7); Neutrophils % (Auto) 95 % (37-80); Nucleated Red Blood Cell % 0 /100 WBC (0); Platelet Count 298 Thou/mm3 (140-440); RDW Standard Deviation 43.4 fL (36.4-46.3); Red Blood Count 3.69 Miln/mm3 (4.00-5.20); White Blood Count 19.5 Thou/mm3 (3.6-11.0)
[2024-09-11 06:36] LABS: Alanine Aminotransferase 33 U/L (10-49); Albumin, Serum 3.5 gm/dL (3.4-4.8); Albumin/Globulin Ratio 1.3 (1.2-2.2); Alkaline Phosphatase 48 U/L (46-116); Anion Gap 5 (7-16); Aspartate Amino Transferase 39 U/L (0-34); BUN/Creatinine Ratio 15 Ratio (12-20); Bilirubin,Total 0.3 mg/dL (0.3-1.2); Blood Urea Nitrogen 15 mg/dL (9-23); Calcium (Corrected) 9.4 mg/dL (8.5-10.1); Carbon Dioxide 23.6 mMol/L (20.0-31.0); Chloride 111 mMol/L (98-107); Estimated Creatinine Clearance 29.3 mL/min (>60); Globulin 2.6 gm/dL (2.3-3.5); Glucose 291 mg/dL (74-106); Magnesium 2.3 mg/dL (1.6-2.6); Osmolality,Calculated 291 (275-295); Potassium 3.8 mMol/L (3.4-5.1); Sodium 140 mMol/L (136-145); Total Protein 6.1 gm/dL (5.7-8.2); eGFR 54 See Note
--- NOTE | 2024-09-11 08:15 | PC.NURSE ---
Speech therapy here to assess Pt., dysphagia 3 diet recommended.
[2024-09-11] MEDS: PANTOPRAZOLE INJ 40 MG VIAL IVP (08:43)
[2024-09-11] MEDS: DOXYCYCLINE INJ 100 MG in SODIUM CHLORIDE 0.9% (P) 100 ML IV (08:44)
[2024-09-11] MEDS: APIXABAN 2.5 MG TABLET 5 MG PO ×2 (08:45→21:18)
[2024-09-11] MEDS: BACLOFEN 10 MG TABLET 5 MG PO (08:45)
[2024-09-11] MEDS: ASPIRIN EC 81 MG TABEC PO (08:46)
[2024-09-11] MEDS: Lisinopril 2.5 MG TABLET 10 MG PO (08:46)
--- NOTE | 2024-09-11 08:47 | PCS.ST ---
Swallow evaluation completed. See report for details. NO s/s of aspiration. Recommend Dysphagia 3/Regular liquids.
[2024-09-11 09:44] LABS: Glucose Estimated Average 146 mg/dL (80-131); Hemoglobin A1C 6.7 % Hgb (4.8-6.0)
[2024-09-11] MEDS: INSULIN LISPRO (AdmeLOG) 1 UNIT/0.01 ML UNIT SC (12:17)
--- NOTE | 2024-09-11 14:18 | PD.RESPRO ---
Documentation for date of: 09/11/24 Subjective Subjective Interval history: Patient seen at bedside. No acute overnight events. She is an 88-year-old female with a past medical history of hypertension, hyperlipidemia, diabetes, CVA, asthma DVT on Eliquis who presented to the ED from [facility] on 09/10/2024 with nausea, vomiting and wheezing. Patient meds 3/4 SIRS criteria with UA positive for UTI, although patient is asymptomatic. She was admitted for management of acute hypoxic respiratory failure, possible asthma exacerbation and sepsis secondary to UTI. At bedside today, patient is doing pretty good, no longer has any vomiting and has been fever free is able to tolerate diet. She had initially been started on ceftriaxone, metronidazole and doxycycline. Will DC and continue only on IV ceftriaxone. 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 Eyes open, symmetrical, & clear CARDIO: No chest pain on palpation. Heart RRR, no obvious murmurs PULM: No noted coughing/dyspnea. Some crackles in lower lobes bilaterally GI: Abdomen soft, nondistended, no pain on palpation. BSx4 URO/OPTICAL MANAGER:: No further abnormalities noted. SKIN/MSK/EXT: No wounds/rashes/edema/amputations, no pain on palpation. Pedal pulses present B/L Objective Labs 09/11/24 04:45 09/11/24 04:45 Labs: Laboratory Results - last 24 hr 09/10/24 09/10/24 09/10/24 17:48 20:23 21:19 WBC 22.3 H RBC 4.15 Hgb 12.3 Hct 37.1 MCV 89 MCH 29.6 MCHC 33.2 RDW Std Deviation 41.6 Plt Count 337 Neut % (Auto) 92 H Lymph % (Auto) 2 L [place] % (Auto) 5 Eos % (Auto) 0 Baso % (Auto) 0 Neut # (Auto) 20.6 H Lymph # (Auto) 0.3 L [place] # (Auto) 1.2 H Eos # (Auto) 0.0 Baso # (Auto) 0.0 Immature Gran # (Auto) 0.15 H Absolute Nucleated RBC 0.00 Immature Gran % 1 H Nucleated RBC % 0 PT 11.9 INR 1.1 APTT 25.2 Sodium 140 Potassium 3.8 Chloride 108 H Carbon Dioxide 23.7 Anion Gap 8 BUN 14 Creatinine 0.9 Estim Creat Clear Calc 14.0 L eGFR > 60 BUN/Creatinine Ratio [address] Glu mg/dL Hemoglobin A1c Calculated Osmolality 284 Lactic Acid 3.0 H 1.7 Calcium 9.6 Corrected Calcium 9.7 Phosphorus Magnesium 1.1 L Total Bilirubin 0.5 AST 61 H ALT 44 Alkaline Phosphatase 57 Troponin I < 0.020 B-Natriuretic Peptide 176 H Total Protein 7.0 Albumin 3.9 Globulin 3.1 Albumin/Globulin Ratio 1.3 Lipase 26 Procalcitonin 0.53 H Ur Collection Type Clean Catch Urine Color Yellow Urine Clarity Turbid A Urine pH 5.5 Ur Specific [place] 1.016 Urine Protein Trace Urine Glucose (UA) Negative Urine Ketones Negative Urine Blood Trace Urine Nitrite Negative Urine Bilirubin Negative Urine Urobilinogen (Auto) Negative Ur Leukocyte Esterase Positive Urine RBC 1 Urine WBC 4 Ur Squamous Epith Cells 2 Urine Bacteria 3+ A Hyaline Casts < 1 RSV Rapid 09/11/24 09/11/24 02:49 04:45 WBC 19.5 H RBC 3.69 L Hgb 10.9 L Hct 33.8 L MCV 92 MCH 29.5 MCHC 32.2 RDW Std Deviation 43.4 Plt Count 298 D Neut % (Auto) 95 H Lymph % (Auto) 3 L [place] % (Auto) 2 Eos % (Auto) 0 Baso % (Auto) 0 Neut # (Auto) 18.5 H Lymph # (Auto) 0.6 L [place] # (Auto) 0.3 Eos # (Auto) 0.0 Baso # (Auto) 0.0 Immature Gran # (Auto) 0.07 H Absolute Nucleated RBC 0.00 Immature Gran % 0 Nucleated RBC % 0 PT INR APTT Sodium 140 Potassium 3.8 Chloride 111 H Carbon Dioxide 23.6 Anion Gap 5 L BUN 15 Creatinine 1.0 Estim Creat Clear Calc 29.3 L eGFR 54 L BUN/Creatinine Ratio 15 Glucose [address] Glu mg/dL 146 H Hemoglobin A1c 6.7 H Calculated Osmolality 291 Lactic Acid Calcium 9.0 Corrected Calcium 9.4 Phosphorus 4.0 Magnesium 2.3 Total Bilirubin 0.3 AST 39 H ALT 33 Alkaline Phosphatase 48 Troponin I B-Natriuretic Peptide Total Protein 6.1 Albumin 3.5 Globulin 2.6 Albumin/Globulin Ratio 1.3 Lipase Procalcitonin Ur Collection Type Urine Color Urine Clarity Urine pH Ur Specific [place] Urine Protein Urine Glucose (UA) Urine Ketones Urine Blood Urine Nitrite Urine Bilirubin Urine Urobilinogen (Auto) Ur Leukocyte Esterase Urine RBC Urine WBC Ur Squamous Epith Cells Urine Bacteria Hyaline Casts RSV Rapid Negative Quality Measures Quality Measures none Advance care planning discussed with:: child Assessment & Plan Assessment Current Active Medications: Generic Name Dose Route Start Last Admin Trade Name Freq PRN Reason Stop Dose Admin Acetaminophen 650 mg 09/10/24 21:29 Acetaminophen 325 Mg Tablet PO 10/10/24 21:28 Q6H PRN PAIN SCALE 1-3 (mild Acetaminophen 650 mg 09/10/24 21:29 Acetaminophen 325 Mg Tablet PO 10/10/24 21:28 Q6H PRN Fever >100 Hydrocodone Bitart/Acetaminophen 1 tab 09/11/24 09:48 Hydrocodone/Apap 7.5/325 Tablet PO 09/15/24 22:11 Q6HR PRN Pain Mod-Severe Albuterol/Ipratropium 3 ml 09/10/24 23:00 09/11/24 10:16 Albuterol/Ipratropium (Duoneb) Rt Cand[place] 3 Ml Nebu INH 10/10/24 22:59 3 ml Q4HRRT ROXANA Administration Apixaban 5 mg 09/10/24 21:45 09/11/24 08:45 Apixaban 2.5 Mg Tablet PO 10/01/24 21:44 5 mg BID ROXANA Administration Aspirin 81 mg 09/11/24 09:00 09/11/24 08:46 Aspirin Ec 81 Mg Tabec PO 10/11/24 08:59 81 mg QDAY ROXANA Administration Atorvastatin Calcium 40 mg 09/11/24 21:00 Atorvastatin Calcium 20 Mg Tablet PO 10/11/24 20:59 HS ROXANA Baclofen 5 mg 09/11/24 09:00 09/11/24 08:45 Baclofen 10 Mg Tablet PO 10/11/24 08:59 5 mg QDAY ROXANA Administration Brimonidine Tartrate 1 drop 09/10/24 22:15 09/11/24 13:50 Brimonidine Op Candida 0.1% 5 Ml Btl BOTH EYES 10/10/24 22:14 Not Given TID ROXANA Dextrose 25 ml 09/11/24 08:10 Dextrose 50%-Water Inj 50 Ml Syringe IV 10/11/24 08:09 Q15MIN PRN BG 50-70 responsive npo pt Dextrose 50 ml 09/11/24 08:10 Dextrose 50%-Water Inj 50 Ml Syringe IV 10/11/24 08:09 Q15MIN PRN BG <50 OR BG <70 & pt unresponsive Donepezil HCl 5 mg 09/11/24 21:00 Donepezil Hcl 5 Mg Tablet PO 10/11/24 20:59 HS [facility] Doxycycline Hyclate 100 mg 09/11/24 21:00 Doxycycline 100 Mg Tablet PO 09/18/24 20:59 BID [facility] Glucagon 1 mg 09/11/24 08:10 Glucagon Inj 1 Mg Vial IM Q15MIN PRN BG <70, and no IV access Guaifenesin 100 mg 09/10/24 21:44 Guaifenesin Syrup 200 Mg/10 Ml Udc PO 10/10/24 21:43 QID PRN COUGH Protocol Guaifenesin/Dextromethorphan 1 each 09/11/24 11:08 Guaifenesin/Dm Tablet PO 10/11/24 11:07 Q4HR PRN COUGH Ceftriaxone Sodium/Dextrose 50 mls @ 100 mls/hr 09/11/24 21:00 Rocephin/D5w 1gm Iv Premix IV 09/18/24 20:59 HS [facility] Insulin Glargine 15 unit 09/11/24 21:00 Insulin Glargine (Lantus) 5 Unit/0.05 Ml (Per 5 Units) SC 10/11/24 20:59 HS [facility] Insulin Human Lispro 0 unit 09/11/24 11:30 09/11/24 12:17 Insulin Lispro (Admelog) 1 Unit/0.01 Ml Unit SC 10/11/24 11:29 3 unit AC [facility] Administration Protocol Latanoprost 0 drop 09/11/24 21:00 Latanoprost Op Candida 0.005% 2.5 Ml Btl BOTH EYES 10/11/24 08:59 HS ROXANA Levothyroxine Sodium 50 mcg 09/11/24 06:00 09/11/24 05:41 Levothyroxine Sodium 25 Mcg Tablet PO 10/11/24 05:59 50 mcg ACBR ROXANA Administration Lisinopril 10 mg 09/11/24 09:00 09/11/24 08:46 Lisinopril 2.5 Mg Tablet PO 10/11/24 08:59 10 mg QDAY ROXANA Administration Nitroglycerin 0.4 mg 09/10/24 21:44 Nitroglycerin 0.4 Mg Subl Btl #25 SL Q5MIN PRN CHEST PAIN Ondansetron HCl 4 mg 09/10/24 21:29 Ondansetron Inj 2 Mg/Ml Inj 2 Ml IV 10/10/24 21:28 Q6H PRN NAUSEA OR VOMITING Protocol Pantoprazole Sodium 40 mg 09/11/24 09:00 09/11/24 08:43 Pantoprazole Inj 40 Mg Vial IVP 10/11/24 08:59 40 mg QDAY ROXANA Administration Plan Summary: The patient is an 88-year-old female with PMHx of dementia, CVA, DVT on ELIQUIS, asthma, HTN, HLD, hypothyroidism, T2DM, oropharyngeal dysphagia. Admitted for sepsis likely from PNA vs. UTI. #Acute hypoxic respiratory failure #Asthma exacerbation Patient presented with SNF with wheezing. Per initial bedside, the patient does have a history of asthma and has an inhaler but does not typically have difficulty breathing or has not had in a while. Additionally, she recently tested positive for COVID. On admission, examination showed patient with bilateral wheezing mostly in upper lung mccurdy. All viral test were done which were negative. Chest x-ray showed some vascular congestion, no pneumonia. The patient was started on IV ceftriaxone. Plan: -Breathing treatments as needed -Oxygen as needed #Systemic Inflammatory Response Syndrome #Urinary tract infection The patient presented with nausea and vomiting. On admission, she met 35) criteria, with tachycardia of 95, fever of 101.2 and WBC of 22.3. Urinalysis showed 3+ bacteria and positive leukocyte esterase and patient was started on empiric treatment for urinary tract infection. Today, patient is much better, denies any fever or vomiting. Plan: -Continue IV ceftriaxone -Pending cultures #Electrolyte imbalance #Hypomagnesemia On admission, patient's magnesium was 1.1 and was repleted Today, magnesium-2.3 Plan: ? Replete as needed #Elevated BNP #Mild transaminitis BNP 176, CXR suggested CHF, no history of CHF, no signs of volume overload, no recent echo. AST 61, likely in setting of dehydration. Patient received a lot of fluids since admission, on examination today has some crackles bilaterally. Will consider diuresis tomorrow if she still sounds congested. Plan: ?Hold IV fluids -Possible diuresis tomorrow if congested #DVT on Eliquis History of DVT 6 months ago. Location unclear, no obvious exam findings of DVT. Per SNF, primary doctor wanted to continue ELIQUIS. ? Continue home ELIQUIS 5 mg BID. #History of hypertension #History of hyperlipidemia #History of hypothyroidism BP 156/92, HR 96. Will hold BETA-BLOCKERS for risk of masking tachycardia in setting of sepsis. ? Resume home NEBIVOLOL 10 mg HS when able to ? Continue home LISINOPRIL 10 mg ? Continue home ATORVASTATIN 40 mg ? Continue home FENOFIBRATE 48 mg daily ? Continue home LEVOTHYROXINE 50 mcg #T2DM GLUCOSE 197 on admission. Patient is on insulin 15 units daily .A1c-6.7 Plan: ? INSULIN sliding scale ? Accu-Cheks ? Consider A1c #Hx of CVA ? Continue home ASPIRIN 81 mg daily #Dementia #Oropharyngeal dysphagia Appears at baseline. Speech eval was done today-recommended dysphagia 3 #History of glaucoma ? Continue home LATANOPROST eyedrops bilaterally daily ? Continue home BRIMONIDINE 0.1% solution bilaterally TID #History of chronic musculoskeletal pain ? Continue BACLOFEN 5 mg daily PRN ? Continue NORCO 7.5-325 milligram Q8H for pain Health maintenance Diet: Dysphagia diet GI prophylaxis: PROTONIX DVT prophylaxis: ELIQUIS Antibiotics: IV ceftriaxone CODE STATUS: Full code Case was discussed with Dr Phelps PGY-2 and attending physician, Dr Shun Medina MD PGY-1 Disclaimer: This note was dictated by speech recognition. Minor errors in elevator examiner and adjuster may be present due to voice recognition software. Attending Provider Attestation/Addendum I reviewed labs, imaging, EKG, home medications and prior available records. Face to face evaluation was performed by me. I have personally examined the patient and discussed assessment and plan with the IM team. I reviewed the resident note and agree with the plan with exceptions as below. Sepsis Acute UTI Leukocytosis Pulmonary vascular congestion History of CVA Uncontrolled diabetes mellitus with hyperglycemia, insulin-dependent History of DVT Continue ceftriaxone/doxycycline Follow-up blood and urine cultures Trend WBC: Downtrending Stopped IV fluids in the setting of pulmonary vascular congestion Started insulin glargine plus sliding scale insulin. Monitor fingersticks Continued aspirin and atorvastatin Continue Eliquis
--- NOTE | 2024-09-11 15:00 | PC.NURSE ---
Pt. has bcome confused, pulling at IV, pulled tele box off, Avasure placed in room, family at bedside, will cont. to monitor.
--- NOTE | 2024-09-11 17:14 | PC.SS ---
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. Patient's emergency contact is Rosa Barrientos . Patient uses a wheel chair at the [facility]. Patient does not typically use oxygen at the SNF. Patient followed by facility PCP. Patient to return to SNF upon d/c. financial services representative to arrange transport for the patient once ready for d/c. D/c plan: return to [facility] Next of kin: Rosa Barrientos
--- NOTE | 2024-09-11 17:17 | PC.SS ---
Rounding note: patient pending cultures and receiving IV abx.
[2024-09-11] MEDS: LATANOPROST OP SOL 0.005% 2.5 ML BTL BOTH EYES (21:17)
[2024-09-11] MEDS: cefTRIAXone 1,000 MG in SODIUM CHLORIDE 0.9% (P) 50 ML 100 MG IV (21:17)
[2024-09-11] MEDS: ATORVASTATIN CALCIUM 20 MG TABLET 40 MG PO (21:18)
[2024-09-11] MEDS: DOXYCYCLINE 100 MG TABLET PO (21:18)
[2024-09-11] MEDS: DONEPEZIL HCL 5 MG TABLET PO (21:19)
[2024-09-11] MEDS: INSULIN GLARGINE (Lantus) 5 UNIT/0.05 ML (PER 5 UNITS) 15 UNIT SC (21:19)
[2024-09-12] VITALS (15 sets, daily range): BP systolic 134–163; BP diastolic 66–80; PULSE 74–95; RESP 16–99; TEMP 36.2–36.5; O2SAT 91–98
--- NOTE | 2024-09-12 01:10 | PC.NURSE ---
Pt's HR went up to 183 not sustaining, HR went down to 93 right away. Pt asymptomatic lying down in bed & watching TV Dr. Dan was made aware, no new orders for pt at this time.
[2024-09-12] MEDS: ALBUTEROL/IPRATROPIUM (Duoneb) RT SOL 3 ML NEBU INH ×6 (02:52→22:42)
[2024-09-12 05:50] LABS: Basophils % (Auto) 0 % (0-2.5); Eosinophils # (Auto) 0.1 Thou/mm3 (0.0-0.5); Eosinophils % (Auto) 1 % (0-10); Hematocrit 29.8 % (36.0-46.0); Hemoglobin 9.9 g/dL (12.0-16.0); Immature Granulocytes % (Auto) 1 % (0-0); Immature Granulocytes Auto 0.06 Thou/mm3 (0.00-0.00); Lymphocytes # (Auto) 2.1 Thou/mm3 (1.0-4.8); Lymphocytes % (Auto) 16 % (10-50); Mean Corpuscular HGB Conc 33.2 g/dl (31.0-37.0); Mean Corpuscular Hemoglobin 29.8 pg (25.0-35.0); Mean Corpuscular Volume 90 fL (80-100); Monocytes # (Auto) 0.7 Thou/mm3 (0.0-0.8); Monocytes % (Auto) 5 % (0-12); Neutrophils % (Auto) 77 % (37-80); Nucleated Red Blood Cell % 0 /100 WBC (0); Platelet Count 262 Thou/mm3 (140-440); RDW Standard Deviation 43.3 fL (36.4-46.3); Red Blood Count 3.32 Miln/mm3 (4.00-5.20)
[2024-09-12] MEDS: LEVOTHYROXINE SODIUM 25 MCG TABLET 50 MCG PO (05:58)
[2024-09-12 06:17] LABS: Alanine Aminotransferase 23 U/L (10-49); Albumin, Serum 3.4 gm/dL (3.4-4.8); Albumin/Globulin Ratio 1.3 (1.2-2.2); Alkaline Phosphatase 45 U/L (46-116); Anion Gap 9 (7-16); Aspartate Amino Transferase 28 U/L (0-34); BUN/Creatinine Ratio 18 Ratio (12-20); Bilirubin,Total 0.2 mg/dL (0.3-1.2); Blood Urea Nitrogen 18 mg/dL (9-23); Calcium 9.1 mg/dL (8.3-10.6); Calcium (Corrected) 9.6 mg/dL (8.5-10.1); Carbon Dioxide 25.4 mMol/L (20.0-31.0); Chloride 109 mMol/L (98-107); Estimated Creatinine Clearance 29.3 mL/min (>60); Globulin 2.6 gm/dL (2.3-3.5); Glucose 108 mg/dL (74-106); Magnesium 1.8 mg/dL (1.6-2.6); Osmolality,Calculated 287 (275-295); Phosphorous 2.6 mg/dL (2.4-5.1); Potassium 3.5 mMol/L (3.4-5.1); Sodium 143 mMol/L (136-145); eGFR 54 See Note
[2024-09-12] MEDS: Lisinopril 2.5 MG TABLET 10 MG PO (08:27)
[2024-09-12] MEDS: BACLOFEN 10 MG TABLET 5 MG PO (08:27)
[2024-09-12] MEDS: ASPIRIN EC 81 MG TABEC PO (08:27)
[2024-09-12] MEDS: APIXABAN 2.5 MG TABLET 5 MG PO ×2 (08:27→20:31)
[2024-09-12] MEDS: PANTOPRAZOLE INJ 40 MG VIAL IVP (08:28)
[2024-09-12] MEDS: DOXYCYCLINE 100 MG TABLET PO (08:28)
--- NOTE | 2024-09-12 13:47 | PC.NURSE ---
Update report given to flory monterroso nurse via telephone today at @[phone]
[2024-09-12] MEDS: guaiFENesin/DM TABLET 1 EACH PO ×2 (13:58→20:31)
[2024-09-12] MEDS: POLYETHYLENE GLYCOL 17 GM PACKET PO (13:59)
[2024-09-12] MEDS: FUROSEMIDE INJ 10 MG/ML VIAL 2 ML 20 MG IVP (13:59)
[2024-09-12] MEDS: Milk Of Magnesia Susp 30 ML UDC PO (14:06)
--- NOTE | 2024-09-12 15:06 | PD.ADDPROG ---
Addendum Progress Note Addendum Date of report being addended: 09/12/24 Narrative: Attending's attestation: I reviewed labs, imaging, EKG, home medications and prior available records. Face to face evaluation was performed by me. I have personally examined the patient and discussed assessment and plan with the IM team. I reviewed the resident note and agree with the plan with exceptions as below. Sepsis Acute UTI Leukocytosis Pulmonary vascular congestion History of CVA Uncontrolled diabetes mellitus with hyperglycemia, insulin-dependent History of DVT Continue ceftriaxone. MRSA test is negative. Discontinued doxycycline Follow-up blood and urine cultures: Urine culture showed gram-negative rods. Follow-up identification/sensitivity Trend WBC: Downtrending Stopped IV fluids in the setting of pulmonary vascular congestion. Gave IV Lasix given the persistence of crackles on 09/12 Started insulin glargine plus sliding scale insulin. Monitor fingersticks Continued aspirin and atorvastatin Continue Eliquis Possible discharge on 07/13 pending final culture results and further improvement of her symptoms
--- NOTE | 2024-09-12 15:21 | PD.RESPRO ---
Documentation for date of: 09/12/24 Subjective Subjective Interval history: Patient seen at bedside. No acute overnight events. Patient is still tolerating diet, has had no nausea or vomiting no fever. Examination, she still is congested and has crackles bilaterally. Will give a one-time dose of IV Lasix and reevaluate the patient tomorrow. Urine culture returned positive for GNR, pending final read. MRSA negative, will DC doxycycline. 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 Eyes open, symmetrical, & clear CARDIO: No chest pain on palpation. Heart RRR, no obvious murmurs PULM: Some coughing, vrackles bilaterally, no wheezing GI: Abdomen soft, nondistended, no pain on palpation. BSx4 URO/CUSTOM VAN CONVERTER:: No further abnormalities noted. SKIN/MSK/EXT: No wounds/rashes/edema/amputations, no pain on palpation. Pedal pulses present B/L Objective Labs 09/13/24 05:20 09/13/24 05:20 Labs: Laboratory Results - last 24 hr 09/12/24 05:16 WBC 13.0 H D RBC 3.32 L Hgb 9.9 L Hct 29.8 L MCV 90 MCH 29.8 MCHC 33.2 RDW Std Deviation 43.3 Plt Count 262 D Neut % (Auto) 77 Lymph % (Auto) 16 [place] % (Auto) 5 Eos % (Auto) 1 Baso % (Auto) 0 Neut # (Auto) 10.0 H Lymph # (Auto) 2.1 Sol[place] # (Auto) 0.7 Eos # (Auto) 0.1 Baso # (Auto) 0.0 Immature Gran # (Auto) 0.06 H Absolute Nucleated RBC 0.00 Immature Gran % 1 H Nucleated RBC % 0 Sodium 143 Potassium 3.5 Chloride 109 H Carbon Dioxide 25.4 Anion Gap 9 BUN 18 Creatinine 1.0 Estim Creat Clear Calc 29.3 L eGFR 54 L BUN/Creatinine Ratio 18 Glucose 108 H D Calculated Osmolality 287 Calcium 9.1 Corrected Calcium 9.6 Phosphorus 2.6 Magnesium 1.8 Total Bilirubin 0.2 L AST 28 ALT 23 Alkaline Phosphatase 45 L Total Protein 6.0 Albumin 3.4 Globulin 2.6 Albumin/Globulin Ratio 1.3 Quality Measures Quality Measures none Advance care planning discussed with:: patient Assessment & Plan Assessment Current Active Medications: Generic Name Dose Route Start Last Admin Trade Name Freq PRN Reason Stop Dose Admin Acetaminophen 650 mg 09/10/24 21:29 Acetaminophen 325 Mg Tablet PO 10/10/24 21:28 Q6H PRN PAIN SCALE 1-3 (mild Acetaminophen 650 mg 09/10/24 21:29 Acetaminophen 325 Mg Tablet PO 10/10/24 21:28 Q6H PRN Fever >100 Hydrocodone Bitart/Acetaminophen 1 tab 09/11/24 09:48 Hydrocodone/Apap 7.5/325 Tablet PO 09/15/24 22:11 Q6HR PRN Pain Mod-Severe Albuterol/Ipratropium 3 ml 09/10/24 23:00 09/12/24 14:41 Albuterol/Ipratropium (Duoneb) Rt Candida 3 Ml Nebu INH 10/10/24 22:59 3 ml Q4HRRT ROXANA Administration Apixaban 5 mg 09/10/24 21:45 09/12/24 08:27 Apixaban 2.5 Mg Tablet PO 10/01/24 21:44 5 mg BID ROXANA Administration Aspirin 81 mg 09/11/24 09:00 09/12/24 08:27 Aspirin Ec 81 Mg Tabec PO 10/11/24 08:59 81 mg QDAY ROXANA Administration Atorvastatin Calcium 40 mg 09/11/24 21:00 09/11/24 21:18 Atorvastatin Calcium 20 Mg Tablet PO 10/11/24 20:59 40 mg HS ROXANA Administration Baclofen 5 mg 09/11/24 09:00 09/12/24 08:27 Baclofen 10 Mg Tablet PO 10/11/24 08:59 5 mg QDAY ROXANA Administration Brimonidine Tartrate 1 drop 09/10/24 22:15 09/12/24 06:28 Brimonidine Op Candida 0.1% 5 Ml Btl BOTH EYES 10/10/24 22:14 Not Given TID ROXANA Dextrose 25 ml 09/11/24 08:10 Dextrose 50%-Water Inj 50 Ml Syringe IV 10/11/24 08:09 Q15MIN PRN BG 50-70 responsive npo pt Dextrose 50 ml 09/11/24 08:10 Dextrose 50%-Water Inj 50 Ml Syringe IV 10/11/24 08:09 Q15MIN PRN BG <50 OR BG <70 & pt unresponsive Donepezil HCl 5 mg 09/11/24 21:00 09/11/24 21:19 Donepezil Hcl 5 Mg Tablet PO 10/11/24 20:59 5 mg HS ROXANA Administration Glucagon 1 mg 09/11/24 08:10 Glucagon Inj 1 Mg Vial IM Q15MIN PRN BG <70, and no IV access Guaifenesin 100 mg 09/10/24 21:44 Guaifenesin Syrup 200 Mg/10 Ml Udc PO 10/10/24 21:43 QID PRN COUGH Protocol Guaifenesin/Dextromethorphan 1 each 09/12/24 11:45 09/12/24 13:58 Guaifenesin/Dm Tablet PO 10/12/24 11:44 1 each BID ROXANA Administration Ceftriaxone Sodium 1,000 mg/ 50 mls @ 100 mls/hr 09/11/24 21:00 09/11/24 21:17 Sodium Chloride IV 09/18/24 20:59 100 mls/hr HS ROXANA Administration Insulin Glargine 15 unit 09/11/24 21:00 09/11/24 21:19 Insulin Glargine (Lantus) 5 Unit/0.05 Ml (Per 5 Units) SC 10/11/24 20:59 15 unit HS ROXANA Administration Insulin Human Lispro 0 unit 09/11/24 11:30 09/12/24 12:37 Insulin Lispro (Admelog) 1 Unit/0.01 Ml Unit SC 10/11/24 11:29 Not Given AC ROXANA Protocol Latanoprost 0 drop 09/11/24 21:00 09/11/24 21:17 Latanoprost Op Candida 0.005% 2.5 Ml Btl BOTH EYES 10/11/24 08:59 1 drop HS ROXANA Administration Levothyroxine Sodium 50 mcg 09/11/24 06:00 09/12/24 05:58 Levothyroxine Sodium 25 Mcg Tablet PO 10/11/24 05:59 50 mcg ACBR ROXANA Administration Lisinopril 10 mg 09/11/24 09:00 09/12/24 08:27 Lisinopril 2.5 Mg Tablet PO 10/11/24 08:59 10 mg QDAY ROXANA Administration Nitroglycerin 0.4 mg 09/10/24 21:44 Nitroglycerin 0.4 Mg Subl Btl #25 SL Q5MIN PRN CHEST PAIN Ondansetron HCl 4 mg 09/10/24 21:29 Ondansetron Inj 2 Mg/Ml Inj 2 Ml IV 10/10/24 21:28 Q6H PRN NAUSEA OR VOMITING Protocol Pantoprazole Sodium 40 mg 09/11/24 09:00 09/12/24 08:28 Pantoprazole Inj 40 Mg Vial IVP 10/11/24 08:59 40 mg QDAY ROXANA Administration Polyethylene Glycol 17 gm 09/12/24 12:45 09/12/24 13:59 Polyethylene Glycol 17 Gm Packet PO 10/12/24 12:44 17 gm QDAY ORXANA Administration Plan Summary: The patient is an 88-year-old female with PMHx of dementia, CVA, DVT on ELIQUIS, asthma, HTN, HLD, hypothyroidism, T2DM, oropharyngeal dysphagia. Admitted for sepsis likely from PNA vs. UTI. #Acute hypoxic respiratory failure #Asthma exacerbation #Possible fluid overload Patient presented with SNF with wheezing. Per initial bedside, the patient does have a history of asthma and has an inhaler but does not typically have difficulty breathing or has not had in a while. Additionally, she recently tested positive for COVID. On admission, examination showed patient with bilateral wheezing mostly in upper lung mccurdy. All viral test were done which were negative. Chest x-ray showed some vascular congestion, no pneumonia. The patient was started on IV ceftriaxone. 09/12/2024- MRSA negative. Patient still sounds congested today, crackles on examination but saturating 97% on room air. Plan: -Breathing treatments as needed -Oxygen as needed -IV Lasix 20mg x 1 #Systemic Inflammatory Response Syndrome #Urinary tract infection The patient presented with nausea and vomiting. On admission, she met 35) criteria, with tachycardia of 95, fever of 101.2 and WBC of 22.3. Urinalysis showed 3+ bacteria and positive leukocyte esterase and patient was started on empiric treatment for urinary tract infection. Today, patient is much better, denies any fever or vomiting. Urine culture returned positive for GNR, pending final read Plan: -Continue IV ceftriaxone -Pending final cultures #Electrolyte imbalance #Hypomagnesemia- resolved On admission, patient's magnesium was 1.1 and was repleted Today, magnesium-1.8 Plan: ? Replete as needed #Elevated BNP #Mild transaminitis- resolved BNP 176, CXR suggested CHF, no history of CHF, no signs of volume overload, no recent echo. AST 61, likely in setting of dehydration. Patient received a lot of fluids since admission, on examination today has some crackles bilaterally. Will consider diuresis tomorrow if she still sounds congested. Plan: ?Hold IV fluids -Possible diuresis tomorrow if congested #DVT on Eliquis History of DVT 6 months ago. Location unclear, no obvious exam findings of DVT. Per SNF, primary doctor wanted to continue ELIQUIS. ? Continue home ELIQUIS 5 mg BID. Consider dose reduction to 2.5mg bid on discharge #History of hypertension #History of hyperlipidemia #History of hypothyroidism BP 156/92, HR 96. Will hold BETA-BLOCKERS for risk of masking tachycardia in setting of sepsis. ? Resume home NEBIVOLOL 10 mg HS when able to ? Continue home LISINOPRIL 10 mg ? Continue home ATORVASTATIN 40 mg ? Continue home FENOFIBRATE 48 mg daily ? Continue home LEVOTHYROXINE 50 mcg #T2DM GLUCOSE 197 on admission. Patient is on insulin 15 units daily .A1c-6.7 Plan: ? INSULIN sliding scale ? Accu-Cheks ? Consider A1c #Hx of CVA ? Continue home ASPIRIN 81 mg daily #Dementia #Oropharyngeal dysphagia Appears at baseline. Speech eval was done today-recommended dysphagia 3 #History of glaucoma ? Continue home LATANOPROST eyedrops bilaterally daily ? Continue home BRIMONIDINE 0.1% solution bilaterally TID #History of chronic musculoskeletal pain ? Continue BACLOFEN 5 mg daily PRN ? Continue NORCO 7.5-325 milligram Q8H for pain Health maintenance Diet: Dysphagia diet GI prophylaxis: PROTONIX DVT prophylaxis: ELIQUIS Antibiotics: IV ceftriaxone CODE STATUS: Full code Case was discussed with Dr Calderón PGY-2 and attending physician, Dr Shun Medina MD PGY-1 Disclaimer: This note was dictated by speech recognition. Minor errors in flight physician may be present due to voice recognition software. Attending Provider Attestation/Addendum I reviewed labs, imaging, EKG, home medications and prior available records. Face to face evaluation was performed by me. I have personally examined the patient and discussed assessment and plan with the IM team. I reviewed the resident note and agree with the plan with exceptions as below. See my addendum in a separate addendum note
--- NOTE | 2024-09-12 15:39 | PC.SS ---
SS update: patient is pending final cultures and will be d/c with oral abx upon return to [facility].
[2024-09-12] MEDS: BRIMONIDINE OP SOL 0.1% 5 ML BTL 1 DROP BOTH EYES ×2 (18:25→21:21)
[2024-09-12] MEDS: cefTRIAXone 1,000 MG in SODIUM CHLORIDE 0.9% (P) 50 ML 100 MG IV (20:31)
[2024-09-12] MEDS: DONEPEZIL HCL 5 MG TABLET PO (20:31)
[2024-09-12] MEDS: ATORVASTATIN CALCIUM 20 MG TABLET 40 MG PO (20:31)
[2024-09-12] MEDS: INSULIN GLARGINE (Lantus) 5 UNIT/0.05 ML (PER 5 UNITS) 15 UNIT SC (20:35)
[2024-09-12] MEDS: LATANOPROST OP SOL 0.005% 2.5 ML BTL BOTH EYES (20:54)
[2024-09-13] VITALS (12 sets, daily range): BP systolic 122–170; BP diastolic 72–84; PULSE 80–100; RESP 16–92; TEMP 36.3–36.7; O2SAT 93–97
[2024-09-13] MEDS: ALBUTEROL/IPRATROPIUM (Duoneb) RT SOL 3 ML NEBU INH ×3 (02:57→10:28)
[2024-09-13] MEDS: LEVOTHYROXINE SODIUM 25 MCG TABLET 50 MCG PO (05:05)
[2024-09-13] MEDS: BRIMONIDINE OP SOL 0.1% 5 ML BTL 1 DROP BOTH EYES ×2 (05:09→15:36)
[2024-09-13 05:44] LABS: Basophils % (Auto) 0 % (0-2.5); Eosinophils # (Auto) 0.1 Thou/mm3 (0.0-0.5); Eosinophils % (Auto) 1 % (0-10); Hematocrit 34.8 % (36.0-46.0); Hemoglobin 11.6 g/dL (12.0-16.0); Immature Granulocytes % (Auto) 1 % (0-0); Immature Granulocytes Auto 0.06 Thou/mm3 (0.00-0.00); Lymphocytes # (Auto) 1.3 Thou/mm3 (1.0-4.8); Lymphocytes % (Auto) 11 % (10-50); Mean Corpuscular HGB Conc 33.3 g/dl (31.0-37.0); Mean Corpuscular Hemoglobin 29.8 pg (25.0-35.0); Mean Corpuscular Volume 90 fL (80-100); Monocytes # (Auto) 0.6 Thou/mm3 (0.0-0.8); Monocytes % (Auto) 5 % (0-12); Neutrophils # (Auto) 9.4 Thou/mm3 (1.8-7.7); Neutrophils % (Auto) 82 % (37-80); Nucleated Red Blood Cell % 0 /100 WBC (0); Platelet Count 282 Thou/mm3 (140-440); RDW Standard Deviation 42.9 fL (36.4-46.3); Red Blood Count 3.89 Miln/mm3 (4.00-5.20); White Blood Count 11.5 Thou/mm3 (3.6-11.0)
[2024-09-13 06:20] LABS: Alanine Aminotransferase 20 U/L (10-49); Albumin, Serum 3.7 gm/dL (3.4-4.8); Albumin/Globulin Ratio 1.3 (1.2-2.2); Alkaline Phosphatase 56 U/L (46-116); Anion Gap 9 (7-16); Aspartate Amino Transferase 26 U/L (0-34); BUN/Creatinine Ratio 18 Ratio (12-20); Bilirubin,Total 0.3 mg/dL (0.3-1.2); Blood Urea Nitrogen 16 mg/dL (9-23); Calcium 9.6 mg/dL (8.3-10.6); Calcium (Corrected) 9.8 mg/dL (8.5-10.1); Chloride 106 mMol/L (98-107); Creatinine (Component) 0.9 mg/dL (0.6-1.3); Estimated Creatinine Clearance 32.6 mL/min (>60); Globulin 2.9 gm/dL (2.3-3.5); Glucose 131 mg/dL (74-106); Magnesium 1.5 mg/dL (1.6-2.6); Osmolality,Calculated 288 (275-295); Potassium 3.7 mMol/L (3.4-5.1); Sodium 143 mMol/L (136-145); Total Protein 6.6 gm/dL (5.7-8.2); eGFR > 60 See Note
[2024-09-13] MEDS: POLYETHYLENE GLYCOL 17 GM PACKET PO (09:16)
[2024-09-13] MEDS: Magnesium Sulfate 4 GM Ivpb 4 GM/50 ML BAG IV (09:16)
[2024-09-13] MEDS: POTASSIUM CHLORIDE 20 mEq TABCR 40 MEQ PO (09:16)
[2024-09-13] MEDS: Lisinopril 2.5 MG TABLET 10 MG PO (09:16)
[2024-09-13] MEDS: APIXABAN 2.5 MG TABLET 5 MG PO (09:17)
[2024-09-13] MEDS: BACLOFEN 10 MG TABLET 5 MG PO (09:17)
[2024-09-13] MEDS: guaiFENesin/DM TABLET 1 EACH PO (09:17)
[2024-09-13] MEDS: ASPIRIN EC 81 MG TABEC PO (09:17)
[2024-09-13] MEDS: PANTOPRAZOLE INJ 40 MG VIAL IVP (09:18)
[2024-09-13] MEDS: amLODIPine BESYLATE 5 MG TABLET PO (10:43)
--- NOTE | 2024-09-13 11:25 | PC.SS ---
SS attempted to make over the phone contact with pt Rosa ROLDAN in regards to DC today back to [facility], no answer. VM left.
--- NOTE | 2024-09-13 11:26 | PC.SS ---
SS spoke to Shima at in regards to pt DC today, SS sent over updated clinicals via [facility].
[2024-09-13] MEDS: INSULIN LISPRO (AdmeLOG) 1 UNIT/0.01 ML UNIT SC (11:51)
--- NOTE | 2024-09-13 12:33 | PD.RESDS ---
Planned Discharge Date 09/13/24 DS: Providers Provider Date of admission: 09/10/24 21:29 Primary care physician: Minesh Correia MD Admitting Provider: Blair Cordero MD Attending Provider on Admission: Dylon Boykin DO Consults: 09/10/24 22:37 Referral Speech Therapy Routine Comment: Attending Provider on DC: David Medina MD Discharging Provider: David Medina MD Hospital Course Hospital Course Hospital course: The patient is an 88-year-old female with a past medical history of hypertension, hyperlipidemia, diabetes, CVA, asthma, DVT on Eliquis who presents to the ED from [facility] on 09/10/2024 with nausea, vomiting and wheezing. In the ED, patient admits to 3/4 SIRS criteria and he was positive for UTI, the patient was asymptomatic. She was admitted for management of acute hypoxic respiratory failure, possible asthma exacerbation and urinary tract infection. The patient was placed on 2 L of oxygen as well as breathing treatment as well as IV antibiotics. Urine culture returned positive for Klebsiella sensitive to ceftriaxone Time Spent with Patient Time attestation: Total time spent providing and/or coordinating discharge services: Exam Vital Signs Temp Pulse Resp BP Pulse Ox O2 Del Method O2 Flow Rate 98.1 F 100 17 170/84 H 93 L Room Air 2 09/13/24 11:57 09/13/24 11:57 09/13/24 11:57 09/13/24 11:57 09/13/24 11:57 09/13/24 07:33 09/12/24 04:00 Discharge Plan Plan Patient Disposition: Xfer Skilled [facility] (SNF) Care Plan Goals: Follow up with your PCP within one week of discharge We reduced the dose of Eliquis to 2.5mg twice daily based on age and weight Continue antibiotics Keflex for 3 more days Continue all other medications as prescribed Ensure to stay hydrated at all times Return to the ED if your symptoms worsen Prescriptions/Referrals Prescriptions/Med Rec: New apixaban 2.5 mg tablet 2.5 mg PO BID 30 Days Qty: 60 0RF cephalexin 500 mg capsule 500 mg PO QID 3 Days Qty: 12 0RF Continued nitroglycerin [Nitrostat] 0.4 mg Tablet, Sublingual 0.4 mg buccal PRN PRN (Reason: Chest Pain) pravastatin 20 mg Tablet 20 mg PO HS nebivolol [Bystolic] 5 mg Tablet 10 mg PO HS Rx Instructions: Hold for SBP <100 or DBP <60 or HR<60 donepezil 5 mg tablet 5 mg PO HS aspirin [Adult Low Dose Aspirin] 81 mg tablet,delayed release (DR/EC) 81 mg PO QDAY atorvastatin 40 mg tablet 40 mg PO HS brimonidine 0.1 % drops 1 drp ophthalmic (eye) Q8H cyanocobalamin (vitamin B-12) 1,000 mcg capsule 1,000 mcg PO QDAY bisacodyl 10 mg suppository 10 mg HI QDAY PRN (Reason: constipation) fenofibrate nanocrystallized 48 mg tablet 48 mg PO QDAY guaifenesin 100 mg/5 mL liquid 100 mg PO Q6H PRN (Reason: cough) insulin glargine [Basaglar KwikPen U-100 Insulin] 100 unit/mL (3 mL) insulin pen 15 unit SUBCUT QDAY Januvia 50 mg tablet 50 mg PO QDAY levothyroxine 50 mcg tablet 50 mcg PO QDAY lisinopril 10 mg tablet 10 mg PO QDAY metformin 1,000 mg tablet 1,000 mg PO BID magnesium hydroxide [Milk of Magnesia] 400 mg/5 mL suspension 30 ml PO Q72H PRN (Reason: constipation) hydrocodone-acetaminophen 7.5-325 mg tablet 1 tab PO Q8H PRN (Reason: pain) insulin aspart U-100 [Novolog FlexPen U-100 Insulin] 100 unit/mL (3 mL) insulin pen 1 sliding scale dose subcut USEASDIRECTD Rx Instructions: Sliding scale: 0-150= 0 units 151-200= 2 units 201-250= 4 units 251-300= 6 units 301-350= 8 units 351-400= 10 units 400+ = Notify turmeric root extract 500 mg tablet 500 mg PO BID latanoprost 0.005 % drops 1 drp Both eyes HS Rx Instructions: Do not use Xalatan and Brimonidine at the same time. Wait 5 minutes between eye drops GlucaGen HypoKit 1 mg recon soln 1 mg subcut PRN PRN (Reason: hypoglycemia) Rx Instructions: for blood sugar< 54 Changed baclofen 10 mg tablet 10 mg PO QDAY PRN (Reason: muscle pain) 30 Days Qty: 0 0RF Discontinued shtkobblaohi-wzlhfbmit-ledvesg [Promethazine VC-Codeine] 6.25-5-10 mg/5 mL Syrup 5 ml PO PRN PRN (Reason: Cough) docusate sodium [Doc-Q-Lace] 100 mg Capsule 100 mg PO BID Eliquis 5 mg tablet 5 mg PO BID Referrals: Minesh Correia MD [Primary Care Provider] - Patient/Caregiver Discharge Instructions Other Discharge Activity Instructions:: Follow up with your PCP within one week of discharge We reduced the dose of Eliquis to 2.5mg twice daily based on age and weight Continue antibiotics Keflex for 3 more days Continue all other medications as prescribed Ensure to stay hydrated at all times Return to the ED if your symptoms worsen Print Language: Tajik Stand Alone Forms: [facility] Award Info., Patient Portal Info Letter Discharge Order Discharge Orders: Discharge (Routine); Ordered 09/13/24 Ordered By: David Medina
--- NOTE | 2024-09-13 13:44 | PC.SS ---
SS spoke to pt scott Barrientos in regards to DC today. She is ok with her returning. Transport set up via [facility] ref #[id number]
--- NOTE | 2024-09-13 13:57 | PD.RESDS ---
Planned Discharge Date 09/13/24 DS: Providers Provider Date of admission: 09/10/24 21:29 Primary care physician: Minesh Correia MD Admitting Provider: Blair Cordero MD Attending Provider on Admission: Dylon Boykin DO Consults: 09/10/24 22:37 Referral Speech Therapy Routine Comment: Attending Provider on DC: Brittany Perdomo MD Discharging Provider: David Medina MD DS: Diagnosis Problem List Completed Was Problem List Reviewed/Reconciled?: Yes Hospital Course Hospital Course Hospital course: The patient is an 88-year-old female with a past medical history of hypertension, hyperlipidemia, diabetes, CVA, asthma, DVT on Eliquis who presents to the ED from [facility] on 09/10/2024 with nausea, vomiting and wheezing. In the ED, patient admits to 3/4 SIRS criteria and he was positive for UTI, the patient was asymptomatic. She was admitted for management of acute hypoxic respiratory failure, possible asthma exacerbation and urinary tract infection. The patient was placed on 2 L of oxygen as well as breathing treatment as well as IV antibiotics. Urine culture returned positive for Klebsiella sensitive to ceftriaxone. Today, the patient is clinically and hemodynamically stable and medically cleared for discharge. She was previously on Eliquis 5 mg twice daily for DVT, we will reduce the dose to 2.5 mg twice daily based on weight and age. She will continue on Keflex 500 mg 4 times daily for 3 more days. She is recommended to follow-up with her PCP within 1 week of discharge. #Acute hypoxic respiratory failure #Asthma exacerbation #Systemic inflammatory response syndrome #Urinary tract infection #History of DVT on Eliquis Discharge instructions: Follow up with your PCP within one week of discharge We reduced the dose of Eliquis to 2.5mg twice daily based on age and weight Continue antibiotics Keflex for 3 more days Continue all other medications as prescribed Ensure to stay hydrated at all times Return to the ED if your symptoms worsen Case was discussed with Dr Calderón PGY-2 and attending physician, Dr Conor Medina MD PGY-1 Disclaimer: This note was dictated by speech recognition. Minor errors in auditor internal may be present due to voice recognition software. 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 Eyes open, symmetrical, & clear CARDIO: No chest pain on palpation. Heart RRR, no obvious murmurs PULM: No noted coughing/dyspnea. Lungs CTA B/L GI: Abdomen soft, nondistended, no pain on palpation. BSx4 URO/ROTARY FILTER OPERATOR:: No further abnormalities noted. SKIN/MSK/EXT: No wounds/rashes/edema/amputations, no pain on palpation. Pedal pulses present B/L Discharge Plan Plan Patient Disposition: Xfer Skilled [facility] Fac (SNF) Care Plan Goals: Follow up with your PCP within one week of discharge We reduced the dose of Eliquis to 2.5mg twice daily based on age and weight Continue antibiotics Keflex for 3 more days Continue all other medications as prescribed Ensure to stay hydrated at all times Return to the ED if your symptoms worsen Prescriptions/Referrals Prescriptions/Med Rec: New apixaban 2.5 mg tablet 2.5 mg PO BID 30 Days Qty: 60 0RF cephalexin 500 mg capsule 500 mg PO QID 3 Days Qty: 12 0RF Continued nitroglycerin [Nitrostat] 0.4 mg Tablet, Sublingual 0.4 mg buccal PRN PRN (Reason: Chest Pain) pravastatin 20 mg Tablet 20 mg PO HS nebivolol [Bystolic] 5 mg Tablet 10 mg PO HS Rx Instructions: Hold for SBP <100 or DBP <60 or HR<60 donepezil 5 mg tablet 5 mg PO HS aspirin [Adult Low Dose Aspirin] 81 mg tablet,delayed release (DR/EC) 81 mg PO QDAY atorvastatin 40 mg tablet 40 mg PO HS brimonidine 0.1 % drops 1 drp ophthalmic (eye) Q8H cyanocobalamin (vitamin B-12) 1,000 mcg capsule 1,000 mcg PO QDAY bisacodyl 10 mg suppository 10 mg [place] QDAY PRN (Reason: constipation) fenofibrate nanocrystallized 48 mg tablet 48 mg PO QDAY guaifenesin 100 mg/5 mL liquid 100 mg PO Q6H PRN (Reason: cough) insulin glargine [Basaglar KwikPen U-100 Insulin] 100 unit/mL (3 mL) insulin pen 15 unit SUBCUT QDAY Januvia 50 mg tablet 50 mg PO QDAY levothyroxine 50 mcg tablet 50 mcg PO QDAY lisinopril 10 mg tablet 10 mg PO QDAY metformin 1,000 mg tablet 1,000 mg PO BID magnesium hydroxide [Milk of Magnesia] 400 mg/5 mL suspension 30 ml PO Q72H PRN (Reason: constipation) hydrocodone-acetaminophen 7.5-325 mg tablet 1 tab PO Q8H PRN (Reason: pain) insulin aspart U-100 [Novolog FlexPen U-100 Insulin] 100 unit/mL (3 mL) insulin pen 1 sliding scale dose subcut USEASDIRECTD Rx Instructions: Sliding scale: 0-150= 0 units 151-200= 2 units 201-250= 4 units 251-300= 6 units 301-350= 8 units 351-400= 10 units 400+ = Notify turmeric root extract 500 mg tablet 500 mg PO BID latanoprost 0.005 % drops 1 drp Both eyes HS Rx Instructions: Do not use Xalatan and Brimonidine at the same time. Wait 5 minutes between eye drops GlucaGen HypoKit 1 mg recon soln 1 mg subcut PRN PRN (Reason: hypoglycemia) Rx Instructions: for blood sugar< 54 Changed baclofen 10 mg tablet 10 mg PO QDAY PRN (Reason: muscle pain) 30 Days Qty: 0 0RF Discontinued cvdnkpzkebkp-qxhdkkwho-fqugwii [Promethazine VC-Codeine] 6.25-5-10 mg/5 mL Syrup 5 ml PO PRN PRN (Reason: Cough) docusate sodium [Doc-Q-Lace] 100 mg Capsule 100 mg PO BID Eliquis 5 mg tablet 5 mg PO BID Referrals: Minesh Correia MD [Primary Care Provider] - Patient/Caregiver Discharge Instructions Other Discharge Activity Instructions:: Follow up with your PCP within one week of discharge We reduced the dose of Eliquis to 2.5mg twice daily based on age and weight Continue antibiotics Keflex for 3 more days Continue all other medications as prescribed Ensure to stay hydrated at all times Return to the ED if your symptoms worsen Print Language: Thai Stand Alone Forms: [facility] Award Info., Patient Portal Info Letter Discharge Order Discharge Orders: Discharge (Routine); Ordered 09/13/24 Ordered By: David Medina Quality Discharge Quality Measures VTE prophylaxis
--- NOTE | 2024-09-13 15:10 | PC.SS ---
ETA set for transport with [facility] for 1600 going back to [facility].
== END 2024-09-13 16:05 | disposition skilled nursing facility (03) | DRG 871 ==
LOC: SERX 21:01 → SERHOLD 09-11 05:40 → S3SX 09-11 05:40
PROVIDERS: Emergency Medicine; Admitting Provider Internal Medicine; Emergency Provider Emergency Medicine; PCP Family Medicine; Visit Provider Student in an Organized Health Care Education/Training Program
DX: A41.59 Other Gram-negative sepsis (principal); J15.0 Pneumonia due to Klebsiella pneumoniae; J96.01 Acute respiratory failure with hypoxia; J45.901 Unspecified asthma with (acute) exacerbation; N39.0 Urinary tract infection, site not specified; Z16.39 Resistance to other specified antimicrobial drug; E78.5 Hyperlipidemia, unspecified; I25.119 Atherosclerotic heart disease of native coronary artery with unspecified angina pectoris; E11.65 Type 2 diabetes mellitus with hyperglycemia; I69.391 Dysphagia following cerebral infarction; R13.12 Dysphagia, oropharyngeal phase; F03.90 Unspecified dementia, unspecified severity, without behavioral disturbance, psychotic disturbance, mood disturbance, and anxiety; E83.42 Hypomagnesemia; I10 Essential (primary) hypertension; E03.9 Hypothyroidism, unspecified; R74.01 Elevation of levels of liver transaminase levels; H40.9 Unspecified glaucoma; G89.29 Other chronic pain; M79.18 Myalgia, other site; Z79.01 Long term (current) use of anticoagulants; B96.89 Other specified bacterial agents as the cause of diseases classified elsewhere; Z86.718 Personal history of other venous thrombosis and embolism; Z74.01 Bed confinement status; Z11.52 Encounter for screening for COVID-19; Z79.4 Long term (current) use of insulin; Z79.82 Long term (current) use of aspirin; Z79.899 Other long term (current) drug therapy; Z88.0 Allergy status to penicillin; Z79.84 Long term (current) use of oral hypoglycemic drugs
CPT/HCPCS: 36415; 71045; 80053; 81001; 83036; 83605; 83690; 83735; 83880; 84100; 84145; 84484; 85025; 85610; 85730; 87040; 87077; 87081; 87086; 87186; 87205; 87400; 87634; 87811; 89220; 92610; 93005; 93225; 94640; 94664; 94667; 96365; 96366; 96367; 96368; 96375; 99285; A9270; J0131; J0696; J1815; J1885; J1940; J2470; J2919; J3475; J3490; J7030; J7040; J7050; J1836